=== PATIENT | female | born 1965 | race Caucasian/White ===

== ENCOUNTER 2017-12-14 10:05 | Inpatient (IN) | payer MEDICARE ==
[~2017-12-14] VITALS: Ht 162.6 cm; Wt 71.5 kg
[2017-12-14] MEDS ORDERED: QUET25TA PO (10:14)
[2017-12-14] MEDS ORDERED: PRAZ1 PO (10:14)
[2017-12-14] MEDS ORDERED: OMEP10 PO (10:14)
[2017-12-14] MEDS ORDERED: DICY20 PO (10:14)
[2017-12-14] MEDS ORDERED: ATOR10TA84 PO (10:14)
[2017-12-14] MEDS ORDERED: BUSP10TA23 PO (10:14)
[2017-12-14] MEDS ORDERED: VENL-53 PO (10:14)
[2017-12-14 10:38] LABS: BASOPHILS % (AUTO) 0.6 % (0.0-2.0); EOSINOPHILS % (AUTO) 3.5 % (1.0-6.0); HEMATOCRIT 36.3 % (36-46); HEMOGLOBIN 12.4 g/dL (12.0-16.0); LYMPHOCYTES # (AUTO) 1.3 K/uL (1.0-4.8); LYMPHOCYTES % (AUTO) 26.7 % (22.0-44.0); MEAN CORPUSCULAR HEMOGLOBIN 30.8 pg (26.0-34.0); MEAN CORPUSCULAR HGB CONC 34.2 G/dL (31.0-37.0); MEAN CORPUSCULAR VOLUME 90 fL (80-100); MONOCYTES # (AUTO) 0.5 K/uL (0.1-1.0); MONOCYTES % (AUTO) 9.2 % (2.0-9.0); PLATELET COUNT (AUTO) 280 K/uL (150-450); RED BLOOD CELL COUNT(AUTO) 4.04 MIL/uL (4.00-5.20); RED CELL DISTRIBUTION WIDTH 13.2 % (11.5-14.5)
[2017-12-14 10:45] LABS: AMPHET/METH SCREEN,URINE NEGATIVE (NEGATIVE); BARBITURATE SCREEN, URINE NEGATIVE (NEGATIVE); BENZODIAZEPINES SCREEN,URINE NEGATIVE (NEGATIVE); CANNABINOID SCREEN,URINE POSITIVE (NEGATIVE); COCAINE SCREEN,URINE NEGATIVE (NEGATIVE); METHADONE SCREEN, URINE NEGATIVE (NEGATIVE); OPIATE SCREEN,URINE NEGATIVE (NEGATIVE)
[2017-12-14 10:47] LABS: ANION GAP 10 mmol/L (8-16); CALCIUM, TOTAL 9.2 mg/dL (8.8-10.5); CARBON DIOXIDE 24 mmol/L (22-29); CHLORIDE 104 mmol/L (98-107); GLOMERULAR FILTR. RATE CALC > 60 mL/min (>60); GLUCOSE,RANDOM 111 mg/dL (70-110); POTASSIUM 3.8 mmol/L (3.5-5.1); SODIUM SERUM 138 mmol/L (136-145); UREA NITROGEN, BLOOD 3 mg/dL (7-18)
[2017-12-14 10:51] LABS: PHENCYCLIDINE SCREEN,URINE NEGATIVE (NEGATIVE)
[2017-12-14 10:52] LABS: ALANINE AMINOTRANSFERASE 16 U/L (12-78); ALBUMIN 3.8 g/dL (3.4-5.0); ALKALINE PHOSPHATASE 121 U/L (46-116); ASPARTATE AMINOTRANSFERASE 19 U/L (15-37); BILIRUBIN,TOTAL 0.4 mg/dL (0.1-1.0); TOTAL PROTEIN, SERUM 7.1 g/dL (6.4-8.2)
[2017-12-14] MEDS ORDERED: LORazepam 2 MG TABLET PO ONE (11:30)
[2017-12-14] MEDS ORDERED: HALOPERIDOL 5 MG TABLET PO ONE (11:30)
[2017-12-14] MEDS ORDERED: DiphenhydrAMINE HCL 25 MG CAPSULE PO ONE (11:30)
[2017-12-14 13:48] LABS: APPEARANCE,URINE CLOUDY (CLEAR); BILIRUBIN,URINE NEGATIVE (NEGATIVE); GLUCOSE, URINE (UA) NEGATIVE (NEGATIVE); KETONES,URINE NEGATIVE (NEGATIVE); LEUKOCYTE ESTERASE ,URINE SMALL (NEGATIVE); NITRATE,URINE NEGATIVE (NEGATIVE); OCCULT BLOOD,URINE TRACE (NEGATIVE); PH,URINE 5.5 (5.0-8.0); PROTEIN,URINE NEGATIVE (NEGATIVE); UROBILINOGEN,URINE 0.2 mg/dL (<=1.0)
[2017-12-14 14:05] LABS: BACTERIA,URINE None Seen /HPF (None Seen); RBC,URINE 0-2 /HPF (0-2)
[2017-12-14 14:47] VITALS: BP 121/82
[2017-12-14] MEDS ORDERED: MAGNESIUM HYDROXIDE SUSPENSION 30 ML UDCUP PO PRN (19:45)
[2017-12-14] MEDS ORDERED: PETROLATUM,WHITE 71 GM JELLY TP PRN (19:45)
[2017-12-14] MEDS ORDERED: MAG HYDROX/AL HYDROX/SIMETH ES 30 ML SUSPENSION UDCUP PO PRN (19:45)
[2017-12-14] MEDS ORDERED: BACITRACIN 28.4 GM OINTMENT TP PRN (19:45)
[2017-12-14] MEDS ORDERED: ONDANSETRON HCL 4 MG TABLET PO PRN (19:45)
[2017-12-14] MEDS ORDERED: LOPERAMIDE HCL 2 MG CAPSULE PO PRN (19:45)
[2017-12-14] MEDS ORDERED: CloNIDine HCL 0.1 MG TABLET PO PRN (19:45)
[2017-12-14] MEDS ORDERED: ALBUTEROL SULFATE HFA 90 MCG/PUFF 8 GM INHALER IH PRN (19:45)
[2017-12-14] MEDS ORDERED: BENZOCAINE/MENTHOL LOZENGE [8 LOZENGES/PACKET] MM PRN (20:00)
[2017-12-14 22:11] VITALS: BP 123/75
[2017-12-15 05:14] VITALS: BP 115/58
[2017-12-15] MEDS: LORazepam 2 MG TABLET PO PRN (05:18)
[2017-12-15 06:37] LABS: HEMOGLOBIN A1C 4.9 % (4.5-6.2)
[2017-12-15 06:47] LABS: CHOL/HDL RATIO 1.9 (3.9-5.7); THYROID STIMULATING HORMONE 0.63 uIU/mL (0.36-3.74)
[2017-12-15] MEDS: ATORVASTATIN CALCIUM 10 MG TABLET PO SCH (08:06)
[2017-12-15] MEDS: OMEPRAZOLE 20 MG CAPSULE PO SCH (08:06)
[2017-12-15] MEDS: DICYCLOMINE HCL 20 MG TABLET PO SCH (08:06)
[2017-12-15 08:08] VITALS: BP 102/59
[2017-12-15] MEDS: NICOTINE 14 MG/24 HOUR PATCH TD SCH (08:10)
[2017-12-15] MEDS ORDERED: PRAZOSIN HCL 1 MG CAPSULE PO SCH ×2 (09:45→21:00)
[2017-12-15] MEDS ORDERED: QUEtiapine FUMARATE 300 MG TABLET PO SCH ×2 (09:45→21:00)
[2017-12-15] MEDS: VENLAFAXINE HCL 37.5 MG TABLET PO SCH ×2 (13:16→16:12)
[2017-12-15] MEDS: BusPIRone HCL 10 MG TABLET PO SCH ×2 (13:16→16:12)
[2017-12-15 17:02] VITALS: BP 115/78
[2017-12-15] MEDS: NITROFURANTOIN/NITROFURAN MAC 100 MG CAPSULE [MACROBID] PO SCH (17:19)
[2017-12-15] MEDS: PRAZOSIN HCL 1 MG CAPSULE PO SCH (20:12)
[2017-12-15] MEDS: ZOLPIDEM TARTRATE 10 MG TABLET PO PRN (21:08)
[2017-12-16 04:37] VITALS: BP 148/89
[2017-12-16] MEDS: ACETAMINOPHEN 325 MG TABLET PO PRN (04:37)
[2017-12-16 08:05] VITALS: BP 124/92
[2017-12-16] MEDS: DICYCLOMINE HCL 20 MG TABLET PO SCH ×4 (08:21→21:00)
[2017-12-16] MEDS: NITROFURANTOIN/NITROFURAN MAC 100 MG CAPSULE [MACROBID] PO SCH ×2 (08:21→16:15)
[2017-12-16] MEDS: ATORVASTATIN CALCIUM 10 MG TABLET PO SCH (08:21)
[2017-12-16] MEDS: VENLAFAXINE HCL 37.5 MG TABLET PO SCH ×2 (08:21→16:15)
[2017-12-16] MEDS: BusPIRone HCL 10 MG TABLET PO SCH ×2 (08:21→16:16)
[2017-12-16] MEDS: OMEPRAZOLE 20 MG CAPSULE PO SCH (08:21)
[2017-12-16] MEDS: NICOTINE 14 MG/24 HOUR PATCH TD SCH (08:25)
[2017-12-16] MEDS: IBUPROFEN 600 MG TABLET PO PRN (10:09)
[2017-12-16 11:15] VITALS: BP 113/76
[2017-12-16 16:48] VITALS: BP 114/87
[2017-12-16] MEDS: PRAZOSIN HCL 1 MG CAPSULE PO SCH (21:00)
[2017-12-17 03:15] VITALS: BP 129/84
[2017-12-17] MEDS: LORazepam 2 MG TABLET PO PRN ×3 (03:17→22:03)
[2017-12-17 08:15] VITALS: BP 116/75
[2017-12-17] MEDS: OMEPRAZOLE 20 MG CAPSULE PO SCH (08:21)
[2017-12-17] MEDS: NITROFURANTOIN/NITROFURAN MAC 100 MG CAPSULE [MACROBID] PO SCH ×2 (08:21→16:04)
[2017-12-17] MEDS: DICYCLOMINE HCL 20 MG TABLET PO SCH ×4 (08:21→20:03)
[2017-12-17] MEDS: BusPIRone HCL 10 MG TABLET PO SCH ×2 (08:22→16:04)
[2017-12-17] MEDS: VENLAFAXINE HCL 37.5 MG TABLET PO SCH ×2 (08:22→16:04)
[2017-12-17] MEDS: ATORVASTATIN CALCIUM 10 MG TABLET PO SCH (08:22)
[2017-12-17] MEDS: NICOTINE 14 MG/24 HOUR PATCH TD SCH (08:23)
[2017-12-17] MEDS: IBUPROFEN 600 MG TABLET PO PRN ×2 (11:14→17:34)
[2017-12-17 11:17] VITALS: BP 118/79
[2017-12-17 12:14] VITALS: BP 127/86
[2017-12-17 17:34] VITALS: BP 137/97
[2017-12-17 18:34] VITALS: BP 128/87
[2017-12-17] MEDS: ZOLPIDEM TARTRATE 10 MG TABLET PO PRN (20:03)
[2017-12-17] MEDS: PRAZOSIN HCL 2 MG CAPSULE PO SCH (20:03)
[2017-12-18 04:05] VITALS: BP 127/97
[2017-12-18] MEDS: HALOPERIDOL 5 MG TABLET PO PRN ×2 (04:08→20:30)
[2017-12-18 08:49] VITALS: BP 156/93
[2017-12-18] MEDS: BusPIRone HCL 10 MG TABLET PO SCH ×2 (08:50→16:16)
[2017-12-18] MEDS: NITROFURANTOIN/NITROFURAN MAC 100 MG CAPSULE [MACROBID] PO SCH ×2 (08:50→16:17)
[2017-12-18] MEDS: DICYCLOMINE HCL 20 MG TABLET PO SCH ×4 (08:50→20:09)
[2017-12-18] MEDS: OMEPRAZOLE 20 MG CAPSULE PO SCH (08:50)
[2017-12-18] MEDS: VENLAFAXINE HCL 37.5 MG TABLET PO SCH (08:51)
[2017-12-18] MEDS: ATORVASTATIN CALCIUM 10 MG TABLET PO SCH (08:51)
[2017-12-18] MEDS: NICOTINE 14 MG/24 HOUR PATCH TD SCH (08:51)
[2017-12-18] MEDS: LORazepam 2 MG TABLET PO PRN ×2 (08:54→16:59)
[2017-12-18] MEDS: VENLAFAXINE HCL 75 MG TABLET PO SCH (16:17)
[2017-12-18 17:20] VITALS: BP 117/84
[2017-12-18] MEDS: PRAZOSIN HCL 2 MG CAPSULE PO SCH (20:09)
[2017-12-18] MEDS: ZOLPIDEM TARTRATE 10 MG TABLET PO PRN (20:30)
[2017-12-19 01:50] VITALS: BP 102/77
[2017-12-19] MEDS: LORazepam 2 MG TABLET PO PRN ×4 (01:50→15:27)
[2017-12-19 06:20] VITALS: BP 116/76
[2017-12-19] MEDS: IBUPROFEN 600 MG TABLET PO PRN (06:22)
[2017-12-19 08:15] VITALS: BP 118/83
[2017-12-19] MEDS: DICYCLOMINE HCL 20 MG TABLET PO SCH ×4 (08:39→21:14)
[2017-12-19] MEDS: ATORVASTATIN CALCIUM 10 MG TABLET PO SCH (08:40)
[2017-12-19] MEDS: BusPIRone HCL 10 MG TABLET PO SCH ×2 (08:40→16:44)
[2017-12-19] MEDS: VENLAFAXINE HCL 75 MG TABLET PO SCH ×2 (08:40→16:44)
[2017-12-19] MEDS: OMEPRAZOLE 20 MG CAPSULE PO SCH (08:40)
[2017-12-19] MEDS: NITROFURANTOIN/NITROFURAN MAC 100 MG CAPSULE [MACROBID] PO SCH ×2 (08:40→16:44)
[2017-12-19] MEDS: NICOTINE 14 MG/24 HOUR PATCH TD SCH (08:42)
[2017-12-19] MEDS: ACETAMINOPHEN 325 MG TABLET PO PRN (10:43)
[2017-12-19] MEDS: HALOPERIDOL 5 MG TABLET PO PRN (14:25)
[2017-12-19 16:26] VITALS: BP 110/68
[2017-12-19] MEDS: PRAZOSIN HCL 2 MG CAPSULE PO SCH (21:14)
[2017-12-20 01:55] VITALS: BP 143/91
[2017-12-20] MEDS: ZOLPIDEM TARTRATE 10 MG TABLET PO PRN (01:58)
[2017-12-20] MEDS: DICYCLOMINE HCL 20 MG TABLET PO SCH ×2 (08:12→13:06)
[2017-12-20] MEDS: ATORVASTATIN CALCIUM 10 MG TABLET PO SCH (08:13)
[2017-12-20] MEDS: OMEPRAZOLE 20 MG CAPSULE PO SCH (08:13)
[2017-12-20] MEDS: NITROFURANTOIN/NITROFURAN MAC 100 MG CAPSULE [MACROBID] PO SCH (08:13)
[2017-12-20] MEDS: BusPIRone HCL 10 MG TABLET PO SCH (08:13)
[2017-12-20] MEDS: LORazepam 2 MG TABLET PO PRN (08:14)
[2017-12-20] MEDS: NICOTINE 14 MG/24 HOUR PATCH TD SCH (08:14)
[2017-12-20] MEDS ORDERED: VENLAFAXINE HCL 75 MG TABLET PO SCH (09:00)
[2017-12-20 09:05] VITALS: BP 114/67
[2017-12-20] MEDS ORDERED: VENL-193 PO (10:10)
[2017-12-20] MEDS ORDERED: MACR100 PO (10:11)
== END 2017-12-20 14:33 | disposition home or self-care (01) | DRG 885 ==
LOC: EMS 10:06 → 3EX 13:14
PROVIDERS: ATTEND Psychiatry & Neurology Child & Adolescent Psychiatry
DX: F33.2 Major depressive disorder, recurrent severe without psychotic features (principal); R45.851 Suicidal ideations; N39.0 Urinary tract infection, site not specified; E78.5 Hyperlipidemia, unspecified; F12.90 Cannabis use, unspecified, uncomplicated; F43.10 Post-traumatic stress disorder, unspecified; G47.00 Insomnia, unspecified; K21.9 Gastro-esophageal reflux disease without esophagitis; K58.9 Irritable bowel syndrome, unspecified; M54.5 Low back pain; R73.9 Hyperglycemia, unspecified; Z71.51 Drug abuse counseling and surveillance of drug abuser; Z59.9 Problem related to housing and economic circumstances, unspecified; Z91.410 Personal history of adult physical and sexual abuse; Z59.0 Homelessness; Z88.1 Allergy status to other antibiotic agents; Z88.2 Allergy status to sulfonamides; Z79.899 Other long term (current) drug therapy; Z98.891 History of uterine scar from previous surgery
CPT/HCPCS: 82306; 83036; 84443; 99285; G0480

== ENCOUNTER 2018-01-12 13:04 | Inpatient (IN) | payer MEDICARE ==
[~2018-01-12] VITALS: Ht 162.6 cm; Wt 71.9 kg
[~2018-01-12 13:04] MED LIST: ATOR10TA84 PO; BUSP10TA23 PO; DICY20 PO; MACR100 PO; OMEP10 PO; PRAZ1 PO; VENL-193 PO
[2018-01-12 14:22] LABS: APPEARANCE,URINE CLEAR (CLEAR); BILIRUBIN,URINE NEGATIVE (NEGATIVE); GLUCOSE, URINE (UA) NEGATIVE (NEGATIVE); KETONES,URINE NEGATIVE (NEGATIVE); LEUKOCYTE ESTERASE ,URINE SMALL (NEGATIVE); NITRATE,URINE NEGATIVE (NEGATIVE); OCCULT BLOOD,URINE TRACE (NEGATIVE); PROTEIN,URINE NEGATIVE (NEGATIVE); UROBILINOGEN,URINE 0.2 mg/dL (<=1.0)
[2018-01-12 14:28] LABS: AMPHET/METH SCREEN,URINE NEGATIVE (NEGATIVE); BARBITURATE SCREEN, URINE NEGATIVE (NEGATIVE); BENZODIAZEPINES SCREEN,URINE NEGATIVE (NEGATIVE); CANNABINOID SCREEN,URINE POSITIVE (NEGATIVE); COCAINE SCREEN,URINE NEGATIVE (NEGATIVE); METHADONE SCREEN, URINE NEGATIVE (NEGATIVE); OPIATE SCREEN,URINE NEGATIVE (NEGATIVE); PHENCYCLIDINE SCREEN,URINE NEGATIVE (NEGATIVE)
[2018-01-12 14:41] LABS: BACTERIA,URINE None Seen /HPF (None Seen); RBC,URINE 0-2 /HPF (0-2); SQUAMOUS EPITHELIAL CELL,UR Moderate /LPF (None Seen)
[2018-01-12 15:14] LABS: BASOPHILS % (AUTO) 0.8 % (0.0-2.0); EOSINOPHILS % (AUTO) 3.9 % (1.0-6.0); HEMATOCRIT 39.5 % (36-46); HEMOGLOBIN 13.3 g/dL (12.0-16.0); LYMPHOCYTES # (AUTO) 1.7 K/uL (1.0-4.8); LYMPHOCYTES % (AUTO) 31.4 % (22.0-44.0); MEAN CORPUSCULAR HEMOGLOBIN 30.6 pg (26.0-34.0); MEAN CORPUSCULAR HGB CONC 33.8 G/dL (31.0-37.0); MEAN CORPUSCULAR VOLUME 90 fL (80-100); MONOCYTES # (AUTO) 0.5 K/uL (0.1-1.0); MONOCYTES % (AUTO) 8.6 % (2.0-9.0); NEUTROPHILS % (AUTO) 55.3 % (40.0-70.0); PLATELET COUNT (AUTO) 245 K/uL (150-450); RED BLOOD CELL COUNT(AUTO) 4.36 MIL/uL (4.00-5.20); RED CELL DISTRIBUTION WIDTH 13.2 % (11.5-14.5)
[2018-01-12 15:23] LABS: ANION GAP 5 mmol/L (8-16); CALCIUM, TOTAL 9.1 mg/dL (8.8-10.5); CARBON DIOXIDE 29 mmol/L (22-29); CHLORIDE 107 mmol/L (98-107); CREATININE 0.82 mg/dL (0.60-1.30); GLOMERULAR FILTR. RATE CALC > 60 mL/min (>60); GLUCOSE,RANDOM 98 mg/dL (70-110); POTASSIUM 3.8 mmol/L (3.5-5.1); SODIUM SERUM 141 mmol/L (136-145); UREA NITROGEN, BLOOD 3 mg/dL (7-18)
[2018-01-12 15:28] LABS: ALANINE AMINOTRANSFERASE 26 U/L (12-78); ALBUMIN 3.8 g/dL (3.4-5.0); ALKALINE PHOSPHATASE 136 U/L (46-116); ASPARTATE AMINOTRANSFERASE 18 U/L (15-37); BILIRUBIN,TOTAL 0.3 mg/dL (0.1-1.0); TOTAL PROTEIN, SERUM 7.3 g/dL (6.4-8.2)
[2018-01-12] MEDS ORDERED: LORazepam 1 MG TABLET PO ONE (18:00)
[2018-01-12 21:18] VITALS: BP 138/75
[2018-01-12] MEDS ORDERED: BENZOCAINE/MENTHOL LOZENGE MM PRN (22:00)
[2018-01-12] MEDS ORDERED: CloNIDine HCL 0.1 MG TABLET PO PRN (22:00)
[2018-01-12] MEDS ORDERED: ONDANSETRON HCL 4 MG TABLET PO PRN (22:00)
[2018-01-12] MEDS ORDERED: ACETAMINOPHEN 325 MG TABLET PO PRN (22:00)
[2018-01-12] MEDS ORDERED: MAGNESIUM HYDROXIDE SUSPENSION 30 ML UDCUP PO PRN (22:00)
[2018-01-12] MEDS ORDERED: PETROLATUM,WHITE 71 GM JELLY TP PRN (22:00)
[2018-01-12] MEDS ORDERED: MAG HYDROX/AL HYDROX/SIMETH ES 30 ML SUSPENSION UDCUP PO PRN (22:00)
[2018-01-12] MEDS ORDERED: LOPERAMIDE HCL 2 MG CAPSULE PO PRN (22:00)
[2018-01-12] MEDS ORDERED: ALBUTEROL SULFATE HFA 90 MCG/PUFF 8 GM INHALER IH PRN (22:00)
[2018-01-12] MEDS ORDERED: BACITRACIN 28.4 GM OINTMENT TP PRN (22:00)
[2018-01-13 00:30] VITALS: BP 118/90
[2018-01-13] MEDS: LORazepam 2 MG TABLET PO PRN ×2 (00:39→09:25)
[2018-01-13] MEDS: ZOLPIDEM TARTRATE 10 MG TABLET PO PRN (00:39)
[2018-01-13 06:02] LABS: BASOPHILS % (AUTO) 0.7 % (0.0-2.0); EOSINOPHILS % (AUTO) 7.5 % (1.0-6.0); HEMATOCRIT 37.8 % (36-46); LYMPHOCYTES # (AUTO) 1.6 K/uL (1.0-4.8); LYMPHOCYTES % (AUTO) 34.6 % (22.0-44.0); MEAN CORPUSCULAR HEMOGLOBIN 30.7 pg (26.0-34.0); MEAN CORPUSCULAR HGB CONC 34.5 G/dL (31.0-37.0); MEAN CORPUSCULAR VOLUME 89 fL (80-100); MONOCYTES # (AUTO) 0.5 K/uL (0.1-1.0); MONOCYTES % (AUTO) 11.8 % (2.0-9.0); NEUTROPHILS # (AUTO) 2.1 K/uL (1.8-7.7); NEUTROPHILS % (AUTO) 45.4 % (40.0-70.0); PLATELET COUNT (AUTO) 241 K/uL (150-450); RED BLOOD CELL COUNT(AUTO) 4.24 MIL/uL (4.00-5.20); RED CELL DISTRIBUTION WIDTH 13.5 % (11.5-14.5)
[2018-01-13 06:30] LABS: ANION GAP 7 mmol/L (8-16); CALCIUM, TOTAL 9.1 mg/dL (8.8-10.5); CARBON DIOXIDE 28 mmol/L (22-29); CHLORIDE 105 mmol/L (98-107); CHOL/HDL RATIO 2.4 (3.9-5.7); CHOLESTEROL 141 mg/dL (131-200); CREATININE 0.69 mg/dL (0.60-1.30); GLOMERULAR FILTR. RATE CALC > 60 mL/min (>60); GLUCOSE,RANDOM 88 mg/dL (70-110); HDL CHOLESTEROL 60 mg/dL (40-60); LDL CHOL (CALC.) 71 mg/dL (0-130); POTASSIUM 3.9 mmol/L (3.5-5.1); SODIUM SERUM 140 mmol/L (136-145); THYROID STIMULATING HORMONE 1.42 uIU/mL (0.36-3.74); TRIGLYCERIDES 50 mg/dL (15-150); UREA NITROGEN, BLOOD 7 mg/dL (7-18)
[2018-01-13] MEDS: OMEPRAZOLE 20 MG CAPSULE PO SCH (08:33)
[2018-01-13] MEDS: DOCUSATE SODIUM 100 MG CAPSULE PO SCH (08:33)
[2018-01-13] MEDS: NICOTINE 14 MG/24 HOUR PATCH TD SCH (08:38)
[2018-01-13 09:15] VITALS: BP 128/90
[2018-01-13] MEDS: BusPIRone HCL 10 MG TABLET PO SCH ×2 (09:30→16:48)
[2018-01-13] MEDS: VENLAFAXINE HCL 37.5 MG ER CAPSULE PO SCH (10:31)
[2018-01-13] MEDS: VENLAFAXINE HCL 150 MG ER CAPSULE PO SCH (10:31)
[2018-01-13 16:24] VITALS: BP 131/73
[2018-01-13] MEDS: ATORVASTATIN CALCIUM 20 MG TABLET PO SCH (20:43)
[2018-01-13] MEDS: QUEtiapine FUMARATE 300 MG TABLET PO SCH (20:44)
[2018-01-13] MEDS: PRAZOSIN HCL 2 MG CAPSULE PO SCH (20:44)
[2018-01-14] MEDS: DOCUSATE SODIUM 100 MG CAPSULE PO SCH (08:21)
[2018-01-14] MEDS: OMEPRAZOLE 20 MG CAPSULE PO SCH (08:21)
[2018-01-14] MEDS: BusPIRone HCL 10 MG TABLET PO SCH ×2 (08:21→16:25)
[2018-01-14] MEDS: VENLAFAXINE HCL 150 MG ER CAPSULE PO SCH (08:22)
[2018-01-14] MEDS: VENLAFAXINE HCL 37.5 MG ER CAPSULE PO SCH (08:23)
[2018-01-14 08:30] VITALS: BP 111/69
[2018-01-14] MEDS: LORazepam 2 MG TABLET PO PRN (08:32)
[2018-01-14] MEDS: IBUPROFEN 600 MG TABLET PO PRN (08:32)
[2018-01-14] MEDS: NICOTINE 14 MG/24 HOUR PATCH TD SCH (08:34)
[2018-01-14 09:44] VITALS: BP 105/55
[2018-01-14] MEDS ORDERED: OMEP20 PO (12:16)
[2018-01-14] MEDS ORDERED: PRAZ2 PO (12:16)
[2018-01-14 16:22] VITALS: BP 123/73
[2018-01-14] MEDS: ATORVASTATIN CALCIUM 20 MG TABLET PO SCH (20:00)
[2018-01-14] MEDS: ZOLPIDEM TARTRATE 10 MG TABLET PO PRN (20:00)
[2018-01-14] MEDS: QUEtiapine FUMARATE 300 MG TABLET PO SCH (20:00)
[2018-01-14] MEDS: PRAZOSIN HCL 2 MG CAPSULE PO SCH (20:00)
[2018-01-15] MEDS: DOCUSATE SODIUM 100 MG CAPSULE PO SCH (08:08)
[2018-01-15] MEDS: BusPIRone HCL 10 MG TABLET PO SCH ×2 (08:08→16:14)
[2018-01-15] MEDS: DICYCLOMINE HCL 20 MG TABLET PO SCH (08:08)
[2018-01-15] MEDS: VENLAFAXINE HCL 37.5 MG ER CAPSULE PO SCH (08:08)
[2018-01-15] MEDS: OMEPRAZOLE 20 MG CAPSULE PO SCH (08:08)
[2018-01-15] MEDS: VENLAFAXINE HCL 150 MG ER CAPSULE PO SCH (08:09)
[2018-01-15] MEDS: NICOTINE 14 MG/24 HOUR PATCH TD SCH (08:09)
[2018-01-15 08:52] VITALS: BP 119/90
[2018-01-15] MEDS: LORazepam 2 MG TABLET PO PRN ×2 (08:52→16:14)
[2018-01-15] MEDS: IBUPROFEN 600 MG TABLET PO PRN (08:52)
[2018-01-15 17:00] VITALS: BP 128/70
[2018-01-15] MEDS: QUEtiapine FUMARATE 300 MG TABLET PO SCH (20:01)
[2018-01-15] MEDS: ATORVASTATIN CALCIUM 20 MG TABLET PO SCH (20:01)
[2018-01-15] MEDS: PRAZOSIN HCL 2 MG CAPSULE PO SCH (20:01)
[2018-01-15] MEDS: ZOLPIDEM TARTRATE 10 MG TABLET PO PRN (20:06)
[2018-01-16] MEDS: IBUPROFEN 600 MG TABLET PO PRN (02:34)
[2018-01-16 02:38] VITALS: BP 115/82
[2018-01-16] MEDS: BusPIRone HCL 10 MG TABLET PO SCH ×2 (08:06→16:31)
[2018-01-16] MEDS: DICYCLOMINE HCL 20 MG TABLET PO SCH (08:06)
[2018-01-16] MEDS: LORazepam 2 MG TABLET PO PRN (08:06)
[2018-01-16] MEDS: VENLAFAXINE HCL 37.5 MG ER CAPSULE PO SCH (08:06)
[2018-01-16] MEDS: DOCUSATE SODIUM 100 MG CAPSULE PO SCH (08:07)
[2018-01-16] MEDS: NICOTINE 14 MG/24 HOUR PATCH TD SCH (08:07)
[2018-01-16] MEDS: VENLAFAXINE HCL 150 MG ER CAPSULE PO SCH (08:07)
[2018-01-16] MEDS: OMEPRAZOLE 20 MG CAPSULE PO SCH (08:07)
[2018-01-16 08:30] VITALS: BP 120/84
[2018-01-16 08:34] VITALS: BP 120/84
[2018-01-16 16:17] VITALS: BP 121/86
[2018-01-16] MEDS: ZOLPIDEM TARTRATE 10 MG TABLET PO PRN (20:13)
[2018-01-16] MEDS: QUEtiapine FUMARATE 300 MG TABLET PO SCH (20:13)
[2018-01-16] MEDS: PRAZOSIN HCL 2 MG CAPSULE PO SCH (20:13)
[2018-01-16] MEDS: ATORVASTATIN CALCIUM 20 MG TABLET PO SCH (20:13)
[2018-01-17] MEDS: VENLAFAXINE HCL 37.5 MG ER CAPSULE PO SCH (07:59)
[2018-01-17] MEDS: BusPIRone HCL 10 MG TABLET PO SCH ×2 (07:59→16:37)
[2018-01-17] MEDS: DOCUSATE SODIUM 100 MG CAPSULE PO SCH (07:59)
[2018-01-17] MEDS: DICYCLOMINE HCL 20 MG TABLET PO SCH (07:59)
[2018-01-17] MEDS: VENLAFAXINE HCL 150 MG ER CAPSULE PO SCH (07:59)
[2018-01-17] MEDS: OMEPRAZOLE 20 MG CAPSULE PO SCH (07:59)
[2018-01-17] MEDS: NICOTINE 14 MG/24 HOUR PATCH TD SCH (08:04)
[2018-01-17] MEDS: LORazepam 2 MG TABLET PO PRN ×2 (08:14→15:21)
[2018-01-17 08:38] VITALS: BP 127/82
[2018-01-17] MEDS: IBUPROFEN 600 MG TABLET PO PRN (15:21)
[2018-01-17 15:23] VITALS: BP 113/64
[2018-01-17 16:13] VITALS: BP 117/71
[2018-01-17] MEDS: ATORVASTATIN CALCIUM 20 MG TABLET PO SCH (20:24)
[2018-01-17] MEDS: PRAZOSIN HCL 2 MG CAPSULE PO SCH (20:24)
[2018-01-17] MEDS: QUEtiapine FUMARATE 300 MG TABLET PO SCH (20:24)
[2018-01-17] MEDS: ZOLPIDEM TARTRATE 10 MG TABLET PO PRN (20:28)
[2018-01-18] MEDS: OMEPRAZOLE 20 MG CAPSULE PO SCH (07:59)
[2018-01-18] MEDS: LORazepam 2 MG TABLET PO PRN ×2 (07:59→14:01)
[2018-01-18] MEDS: DOCUSATE SODIUM 100 MG CAPSULE PO SCH (07:59)
[2018-01-18] MEDS: IBUPROFEN 600 MG TABLET PO PRN (07:59)
[2018-01-18] MEDS: VENLAFAXINE HCL 150 MG ER CAPSULE PO SCH (07:59)
[2018-01-18] MEDS: BusPIRone HCL 10 MG TABLET PO SCH ×2 (07:59→16:21)
[2018-01-18] MEDS: DICYCLOMINE HCL 20 MG TABLET PO SCH (08:00)
[2018-01-18] MEDS: VENLAFAXINE HCL 37.5 MG ER CAPSULE PO SCH (08:00)
[2018-01-18 08:01] VITALS: BP 137/94
[2018-01-18] MEDS: NICOTINE 14 MG/24 HOUR PATCH TD SCH (08:03)
[2018-01-18 09:10] VITALS: BP 127/88
[2018-01-18] MEDS: HALOPERIDOL 5 MG TABLET PO PRN (10:58)
[2018-01-18] MEDS: ATORVASTATIN CALCIUM 20 MG TABLET PO SCH (20:37)
[2018-01-18] MEDS: QUEtiapine FUMARATE 300 MG TABLET PO SCH (20:37)
[2018-01-18] MEDS: PRAZOSIN HCL 2 MG CAPSULE PO SCH (20:37)
[2018-01-18 20:42] VITALS: BP 119/78
[2018-01-19] MEDS: LORazepam 2 MG TABLET PO PRN ×4 (04:00→16:39)
[2018-01-19 04:32] VITALS: BP 132/78
[2018-01-19] MEDS: DICYCLOMINE HCL 20 MG TABLET PO SCH (08:12)
[2018-01-19] MEDS: DOCUSATE SODIUM 100 MG CAPSULE PO SCH (08:12)
[2018-01-19] MEDS: BusPIRone HCL 10 MG TABLET PO SCH ×2 (08:12→16:39)
[2018-01-19] MEDS: OMEPRAZOLE 20 MG CAPSULE PO SCH (08:13)
[2018-01-19] MEDS: VENLAFAXINE HCL 75 MG ER CAPSULE PO SCH (08:13)
[2018-01-19] MEDS: NICOTINE 14 MG/24 HOUR PATCH TD SCH (08:22)
[2018-01-19 08:51] VITALS: BP 135/67
[2018-01-19 16:34] VITALS: BP 109/75
[2018-01-19] MEDS: ATORVASTATIN CALCIUM 20 MG TABLET PO SCH (20:03)
[2018-01-19] MEDS: PRAZOSIN HCL 2 MG CAPSULE PO SCH (20:03)
[2018-01-19] MEDS: QUEtiapine FUMARATE 300 MG TABLET PO SCH (20:03)
[2018-01-19 20:05] VITALS: BP 125/58
[2018-01-19] MEDS: IBUPROFEN 600 MG TABLET PO PRN (20:05)
[2018-01-19] MEDS: ZOLPIDEM TARTRATE 10 MG TABLET PO PRN (20:05)
[2018-01-19 21:05] VITALS: BP 89/57
[2018-01-20] MEDS: DOCUSATE SODIUM 100 MG CAPSULE PO SCH (08:16)
[2018-01-20] MEDS: BusPIRone HCL 10 MG TABLET PO SCH ×2 (08:16→16:12)
[2018-01-20] MEDS: OMEPRAZOLE 20 MG CAPSULE PO SCH (08:16)
[2018-01-20] MEDS: VENLAFAXINE HCL 75 MG ER CAPSULE PO SCH (08:16)
[2018-01-20] MEDS: DICYCLOMINE HCL 20 MG TABLET PO SCH (08:16)
[2018-01-20] MEDS: LORazepam 2 MG TABLET PO PRN ×3 (08:19→16:57)
[2018-01-20] MEDS: NICOTINE 14 MG/24 HOUR PATCH TD SCH (08:21)
[2018-01-20 09:09] VITALS: BP 101/65
[2018-01-20] MEDS: IBUPROFEN 600 MG TABLET PO PRN ×2 (12:46→20:09)
[2018-01-20 17:13] VITALS: BP 128/72
[2018-01-20] MEDS: PRAZOSIN HCL 2 MG CAPSULE PO SCH (20:06)
[2018-01-20] MEDS: ATORVASTATIN CALCIUM 20 MG TABLET PO SCH (20:06)
[2018-01-20] MEDS: QUEtiapine FUMARATE 300 MG TABLET PO SCH (20:06)
[2018-01-20] MEDS: ZOLPIDEM TARTRATE 10 MG TABLET PO PRN (20:08)
[2018-01-20 20:09] VITALS: BP 118/80
[2018-01-20 21:09] VITALS: BP 89/57
[2018-01-21] MEDS: LORazepam 2 MG TABLET PO PRN ×2 (08:03→14:03)
[2018-01-21 08:04] VITALS: BP 108/59
[2018-01-21] MEDS: VENLAFAXINE HCL 75 MG ER CAPSULE PO SCH (08:04)
[2018-01-21] MEDS: IBUPROFEN 600 MG TABLET PO PRN (08:04)
[2018-01-21] MEDS: BusPIRone HCL 10 MG TABLET PO SCH ×2 (08:05→16:00)
[2018-01-21] MEDS: NICOTINE 14 MG/24 HOUR PATCH TD SCH (08:05)
[2018-01-21] MEDS: DICYCLOMINE HCL 20 MG TABLET PO SCH (08:05)
[2018-01-21] MEDS: OMEPRAZOLE 20 MG CAPSULE PO SCH (08:05)
[2018-01-21] MEDS: DOCUSATE SODIUM 100 MG CAPSULE PO SCH (08:05)
[2018-01-21] MEDS: HALOPERIDOL 5 MG TABLET PO PRN (15:49)
[2018-01-21 16:20] VITALS: BP 119/65
[2018-01-21] MEDS: QUEtiapine FUMARATE 300 MG TABLET PO SCH (20:23)
[2018-01-21] MEDS: PRAZOSIN HCL 2 MG CAPSULE PO SCH (20:23)
[2018-01-21] MEDS: ATORVASTATIN CALCIUM 20 MG TABLET PO SCH (20:23)
[2018-01-21] MEDS: ZOLPIDEM TARTRATE 10 MG TABLET PO PRN (21:00)
[2018-01-22] MEDS: VENLAFAXINE HCL 75 MG ER CAPSULE PO SCH (08:18)
[2018-01-22] MEDS: DOCUSATE SODIUM 100 MG CAPSULE PO SCH (08:18)
[2018-01-22] MEDS: BusPIRone HCL 10 MG TABLET PO SCH ×2 (08:18→16:08)
[2018-01-22] MEDS: DICYCLOMINE HCL 20 MG TABLET PO SCH ×2 (08:18→20:25)
[2018-01-22] MEDS: LORazepam 2 MG TABLET PO PRN ×3 (08:23→16:45)
[2018-01-22] MEDS: OMEPRAZOLE 20 MG CAPSULE PO SCH (08:23)
[2018-01-22] MEDS: NICOTINE 14 MG/24 HOUR PATCH TD SCH (08:26)
[2018-01-22 09:49] VITALS: BP 94/66
[2018-01-22] MEDS: IBUPROFEN 600 MG TABLET PO PRN (12:29)
[2018-01-22] MEDS: HALOPERIDOL 5 MG TABLET PO PRN ×2 (15:30→20:24)
[2018-01-22 16:53] VITALS: BP 119/77
[2018-01-22] MEDS: PRAZOSIN HCL 2 MG CAPSULE PO SCH (20:24)
[2018-01-22] MEDS: ATORVASTATIN CALCIUM 20 MG TABLET PO SCH (20:24)
[2018-01-22] MEDS: QUEtiapine FUMARATE 300 MG TABLET PO SCH (20:24)
[2018-01-23] MEDS ORDERED: BUSP10TA23 PO (04:31)
[2018-01-23] MEDS ORDERED: VENL-67 PO (04:41)
[2018-01-23] MEDS ORDERED: QUET300T2 PO (04:43)
[2018-01-23] MEDS ORDERED: DSS100 PO (06:46)
[2018-01-23] MEDS ORDERED: DICY20 PO (06:47)
[2018-01-23] MEDS ORDERED: ATOR20TA86 PO (06:47)
[2018-01-23 07:25] VITALS: BP 121/67
[2018-01-23] MEDS: DICYCLOMINE HCL 20 MG TABLET PO SCH (07:52)
[2018-01-23] MEDS: BusPIRone HCL 10 MG TABLET PO SCH (07:53)
[2018-01-23] MEDS: OMEPRAZOLE 20 MG CAPSULE PO SCH (07:53)
[2018-01-23] MEDS: VENLAFAXINE HCL 75 MG ER CAPSULE PO SCH (07:53)
[2018-01-23] MEDS: DOCUSATE SODIUM 100 MG CAPSULE PO SCH (07:53)
[2018-01-23] MEDS: NICOTINE 14 MG/24 HOUR PATCH TD SCH (08:01)
== END 2018-01-23 08:45 | disposition home or self-care (01) | DRG 885 ==
LOC: EMS 13:05 → 3EX 19:18
PROVIDERS: ADMIT Psychiatry & Neurology Child & Adolescent Psychiatry; ATTEND Psychiatry & Neurology Child & Adolescent Psychiatry
DX: F33.2 Major depressive disorder, recurrent severe without psychotic features (principal); F20.9 Schizophrenia, unspecified; R45.851 Suicidal ideations; E55.9 Vitamin D deficiency, unspecified; E78.5 Hyperlipidemia, unspecified; F12.90 Cannabis use, unspecified, uncomplicated; F17.200 Nicotine dependence, unspecified, uncomplicated; F43.10 Post-traumatic stress disorder, unspecified; G47.00 Insomnia, unspecified; K21.9 Gastro-esophageal reflux disease without esophagitis; K58.9 Irritable bowel syndrome, unspecified; Z91.410 Personal history of adult physical and sexual abuse; Z91.5 Personal history of self-harm; Z88.1 Allergy status to other antibiotic agents; Z88.0 Allergy status to penicillin; Z88.2 Allergy status to sulfonamides; Z88.8 Allergy status to other drugs, medicaments and biological substances
CPT/HCPCS: 82306; 84443; 87081; 99285; G0480

== ENCOUNTER 2018-02-14 12:09 | Inpatient (IN) | payer MEDICARE ==
[~2018-02-14] VITALS: Ht 162.6 cm; Wt 74.8 kg
[~2018-02-14 12:09] MED LIST changes: -ATOR10TA84 PO; +ATOR20TA86 PO; +DSS100 PO; -MACR100 PO; -OMEP10 PO; +OMEP20 PO; -PRAZ1 PO; +PRAZ2 PO; +QUET300T2 PO; -VENL-193 PO; +VENL-67 PO
[2018-02-14 12:15] VITALS: BP 118/82
[2018-02-14] MEDS ORDERED: HALOPERIDOL 5 MG TABLET PO PRN (12:30)
[2018-02-14] MEDS ORDERED: PARO20TA24 PO (13:08)
[2018-02-14] MEDS: LORazepam 2 MG TABLET PO PRN (16:13)
[2018-02-14 16:28] VITALS: BP 127/82
[2018-02-14] MEDS: BusPIRone HCL 10 MG TABLET PO SCH (16:58)
[2018-02-14] MEDS: NICOTINE 14 MG/24 HOUR PATCH TD SCH (19:23)
[2018-02-14] MEDS: PARoxetine HCL 20 MG TABLET PO SCH (20:37)
[2018-02-14] MEDS: QUEtiapine FUMARATE 300 MG TABLET PO SCH (20:37)
[2018-02-15 01:44] VITALS: BP 113/71
[2018-02-15 08:31] VITALS: BP 125/72
[2018-02-15 08:31] LABS: BASOPHILS % (AUTO) 0.8 % (0.0-2.0); EOSINOPHILS % (AUTO) 5.2 % (1.0-6.0); HEMATOCRIT 38.7 % (36-46); HEMOGLOBIN 13.4 g/dL (12.0-16.0); LYMPHOCYTES # (AUTO) 1.8 K/uL (1.0-4.8); LYMPHOCYTES % (AUTO) 35.2 % (22.0-44.0); MEAN CORPUSCULAR HEMOGLOBIN 30.8 pg (26.0-34.0); MEAN CORPUSCULAR HGB CONC 34.7 G/dL (31.0-37.0); MEAN CORPUSCULAR VOLUME 89 fL (80-100); MONOCYTES # (AUTO) 0.7 K/uL (0.1-1.0); MONOCYTES % (AUTO) 13.4 % (2.0-9.0); NEUTROPHILS # (AUTO) 2.3 K/uL (1.8-7.7); NEUTROPHILS % (AUTO) 45.4 % (40.0-70.0); PLATELET COUNT (AUTO) 261 K/uL (150-450); RED BLOOD CELL COUNT(AUTO) 4.36 MIL/uL (4.00-5.20); RED CELL DISTRIBUTION WIDTH 13.3 % (11.5-14.5)
[2018-02-15 08:38] LABS: HEMOGLOBIN A1C 6.1 % (4.5-6.2)
[2018-02-15] MEDS: NICOTINE 14 MG/24 HOUR PATCH TD SCH (08:41)
[2018-02-15] MEDS: BusPIRone HCL 10 MG TABLET PO SCH ×2 (08:41→16:29)
[2018-02-15] MEDS: LORazepam 2 MG TABLET PO PRN ×2 (08:48→17:37)
[2018-02-15 09:09] LABS: ALANINE AMINOTRANSFERASE 26 U/L (12-78); ALBUMIN 3.7 g/dL (3.4-5.0); ALKALINE PHOSPHATASE 131 U/L (46-116); ANION GAP 8 mmol/L (8-16); ASPARTATE AMINOTRANSFERASE 16 U/L (15-37); BILIRUBIN,TOTAL 0.4 mg/dL (0.1-1.0); CALCIUM, TOTAL 8.8 mg/dL (8.8-10.5); CARBON DIOXIDE 27 mmol/L (22-29); CHLORIDE 106 mmol/L (98-107); CHOL/HDL RATIO 1.9 (3.9-5.7); CHOLESTEROL 131 mg/dL (131-200); CREATININE 0.68 mg/dL (0.60-1.30); FREE T4 (FREE THYROXINE) 0.72 ng/dL (0.76-1.46); GLOMERULAR FILTR. RATE CALC > 60 mL/min (>60); GLUCOSE,RANDOM 86 mg/dL (70-110); HDL CHOLESTEROL 69 mg/dL (40-60); LDL CHOL (CALC.) 53 mg/dL (0-130); POTASSIUM 4.4 mmol/L (3.5-5.1); SODIUM SERUM 141 mmol/L (136-145); THYROID STIMULATING HORMONE 1.06 uIU/mL (0.36-3.74); TOTAL PROTEIN, SERUM 6.8 g/dL (6.4-8.2); TRIGLYCERIDES 43 mg/dL (15-150); UREA NITROGEN, BLOOD 12 mg/dL (7-18)
[2018-02-15] MEDS ORDERED: DICYCLOMINE HCL 20 MG TABLET PO SCH (09:30)
[2018-02-15] MEDS ORDERED: OMEPRAZOLE 20 MG CAPSULE PO SCH (09:30)
[2018-02-15] MEDS ORDERED: BACITRACIN 28.4 GM OINTMENT TP PRN (09:45)
[2018-02-15] MEDS ORDERED: LOPERAMIDE HCL 2 MG CAPSULE PO PRN (09:45)
[2018-02-15] MEDS ORDERED: BENZOCAINE/MENTHOL LOZENGE MM PRN (09:45)
[2018-02-15] MEDS ORDERED: MAGNESIUM HYDROXIDE SUSPENSION 30 ML UDCUP PO PRN (09:45)
[2018-02-15] MEDS ORDERED: PETROLATUM,WHITE 71 GM JELLY TP PRN (09:45)
[2018-02-15] MEDS ORDERED: ONDANSETRON HCL 4 MG TABLET PO PRN (09:45)
[2018-02-15] MEDS ORDERED: MAG HYDROX/AL HYDROX/SIMETH ES 30 ML SUSPENSION UDCUP PO PRN (09:45)
[2018-02-15] MEDS ORDERED: ALBUTEROL SULFATE HFA 90 MCG/PUFF 8 GM INHALER IH PRN (09:45)
[2018-02-15] MEDS ORDERED: CloNIDine HCL 0.1 MG TABLET PO PRN (09:45)
[2018-02-15] MEDS: OXYBUTYNIN CHLORIDE 5 MG TABLET PO SCH ×2 (10:08→16:29)
[2018-02-15 10:34] LABS: AMPHET/METH SCREEN,URINE NEGATIVE (NEGATIVE); BARBITURATE SCREEN, URINE NEGATIVE (NEGATIVE); BENZODIAZEPINES SCREEN,URINE NEGATIVE (NEGATIVE); CANNABINOID SCREEN,URINE POSITIVE (NEGATIVE); COCAINE SCREEN,URINE NEGATIVE (NEGATIVE); METHADONE SCREEN, URINE NEGATIVE (NEGATIVE); OPIATE SCREEN,URINE NEGATIVE (NEGATIVE)
[2018-02-15 10:36] LABS: PHENCYCLIDINE SCREEN,URINE NEGATIVE (NEGATIVE)
[2018-02-15 16:30] VITALS: BP 123/79
[2018-02-15] MEDS: IBUPROFEN 600 MG TABLET PO PRN (16:30)
[2018-02-15 18:04] LABS: APPEARANCE,URINE CLEAR (CLEAR); BILIRUBIN,URINE NEGATIVE (NEGATIVE); GLUCOSE, URINE (UA) NEGATIVE (NEGATIVE); KETONES,URINE NEGATIVE (NEGATIVE); LEUKOCYTE ESTERASE ,URINE TRACE (NEGATIVE); NITRATE,URINE NEGATIVE (NEGATIVE); OCCULT BLOOD,URINE TRACE (NEGATIVE); PH,URINE 5.5 (5.0-8.0); PROTEIN,URINE NEGATIVE (NEGATIVE); UROBILINOGEN,URINE 0.2 mg/dL (<=1.0)
[2018-02-15 18:11] LABS: RBC,URINE 0-2 /HPF (0-2); WBC,URINE 0-2 /HPF (0-5)
[2018-02-15 18:12] LABS: BACTERIA,URINE None Seen /HPF (None Seen); SQUAMOUS EPITHELIAL CELL,UR Few /LPF (None Seen)
[2018-02-15 20:40] VITALS: BP 114/83
[2018-02-15] MEDS: QUEtiapine FUMARATE 300 MG TABLET PO SCH (20:41)
[2018-02-15] MEDS: PARoxetine HCL 20 MG TABLET PO SCH (20:41)
[2018-02-15] MEDS: PRAZOSIN HCL 1 MG CAPSULE PO SCH (20:41)
[2018-02-15] MEDS: DICYCLOMINE HCL 20 MG TABLET PO SCH (21:33)
[2018-02-16 01:25] VITALS: BP 109/60
[2018-02-16 08:07] VITALS: BP 108/70
[2018-02-16] MEDS: CHOLECALCIFEROL (VIT D3) 1,000 UNITS TABLET PO SCH (08:37)
[2018-02-16] MEDS: BusPIRone HCL 10 MG TABLET PO SCH ×2 (08:37→16:39)
[2018-02-16] MEDS: OMEPRAZOLE 20 MG CAPSULE PO SCH (08:37)
[2018-02-16] MEDS: DICYCLOMINE HCL 20 MG TABLET PO SCH ×4 (08:37→20:30)
[2018-02-16] MEDS: OXYBUTYNIN CHLORIDE 5 MG TABLET PO SCH ×2 (08:37→16:39)
[2018-02-16] MEDS: NICOTINE 14 MG/24 HOUR PATCH TD SCH (08:38)
[2018-02-16] MEDS: LORazepam 2 MG TABLET PO PRN (09:48)
[2018-02-16 16:03] VITALS: BP 117/74
[2018-02-16 20:17] VITALS: BP 114/83
[2018-02-16] MEDS: IBUPROFEN 600 MG TABLET PO PRN (20:20)
[2018-02-16] MEDS: QUEtiapine FUMARATE 300 MG TABLET PO SCH (20:30)
[2018-02-16] MEDS: PARoxetine HCL 20 MG TABLET PO SCH (20:30)
[2018-02-16] MEDS: PRAZOSIN HCL 1 MG CAPSULE PO SCH (20:30)
[2018-02-17 00:15] VITALS: BP 103/62
[2018-02-17] MEDS: ZOLPIDEM TARTRATE 10 MG TABLET PO PRN (00:18)
[2018-02-17 08:24] VITALS: BP 121/72
[2018-02-17] MEDS: CHOLECALCIFEROL (VIT D3) 1,000 UNITS TABLET PO SCH (08:33)
[2018-02-17] MEDS: OXYBUTYNIN CHLORIDE 5 MG TABLET PO SCH ×2 (08:33→16:00)
[2018-02-17] MEDS: DICYCLOMINE HCL 20 MG TABLET PO SCH ×4 (08:33→20:13)
[2018-02-17] MEDS: OMEPRAZOLE 20 MG CAPSULE PO SCH (08:33)
[2018-02-17] MEDS: BusPIRone HCL 10 MG TABLET PO SCH ×2 (08:33→16:00)
[2018-02-17] MEDS: NICOTINE 14 MG/24 HOUR PATCH TD SCH (08:34)
[2018-02-17] MEDS: LORazepam 2 MG TABLET PO PRN ×2 (10:05→16:56)
[2018-02-17 11:44] VITALS: BP 118/74
[2018-02-17] MEDS: IBUPROFEN 600 MG TABLET PO PRN (11:44)
[2018-02-17 16:00] VITALS: BP 120/74
[2018-02-17] MEDS: ACETAMINOPHEN 325 MG TABLET PO PRN (16:01)
[2018-02-17] MEDS: PARoxetine HCL 10 MG TABLET PO SCH (20:12)
[2018-02-17] MEDS: QUEtiapine FUMARATE 300 MG TABLET PO SCH (20:13)
[2018-02-17] MEDS: PRAZOSIN HCL 1 MG CAPSULE PO SCH (20:13)
[2018-02-18 06:22] VITALS: BP 125/60
[2018-02-18 08:31] VITALS: BP 110/60
[2018-02-18] MEDS: DICYCLOMINE HCL 20 MG TABLET PO SCH ×4 (08:50→20:32)
[2018-02-18] MEDS: OMEPRAZOLE 20 MG CAPSULE PO SCH (08:50)
[2018-02-18] MEDS: BusPIRone HCL 10 MG TABLET PO SCH ×2 (08:50→17:10)
[2018-02-18] MEDS: CHOLECALCIFEROL (VIT D3) 1,000 UNITS TABLET PO SCH (08:50)
[2018-02-18] MEDS: OXYBUTYNIN CHLORIDE 5 MG TABLET PO SCH ×2 (08:50→16:35)
[2018-02-18] MEDS: NICOTINE 14 MG/24 HOUR PATCH TD SCH (08:51)
[2018-02-18] MEDS: IBUPROFEN 600 MG TABLET PO PRN ×2 (08:54→16:02)
[2018-02-18] MEDS: LORazepam 2 MG TABLET PO PRN ×2 (08:54→16:02)
[2018-02-18 16:04] VITALS: BP 113/72
[2018-02-18 20:31] VITALS: BP 122/79
[2018-02-18] MEDS: PRAZOSIN HCL 1 MG CAPSULE PO SCH (20:32)
[2018-02-18] MEDS: PARoxetine HCL 10 MG TABLET PO SCH (20:32)
[2018-02-18] MEDS: QUEtiapine FUMARATE 300 MG TABLET PO SCH (20:32)
[2018-02-19 05:02] VITALS: BP 118/72
[2018-02-19 08:15] VITALS: BP 130/60
[2018-02-19] MEDS: BusPIRone HCL 10 MG TABLET PO SCH ×2 (08:44→17:26)
[2018-02-19] MEDS: OXYBUTYNIN CHLORIDE 5 MG TABLET PO SCH ×2 (08:44→16:39)
[2018-02-19] MEDS: DICYCLOMINE HCL 20 MG TABLET PO SCH ×4 (08:44→20:31)
[2018-02-19] MEDS: CHOLECALCIFEROL (VIT D3) 1,000 UNITS TABLET PO SCH (08:44)
[2018-02-19] MEDS: OMEPRAZOLE 20 MG CAPSULE PO SCH (08:47)
[2018-02-19] MEDS: NICOTINE 14 MG/24 HOUR PATCH TD SCH (08:47)
[2018-02-19] MEDS: IBUPROFEN 600 MG TABLET PO PRN (08:48)
[2018-02-19] MEDS: LORazepam 2 MG TABLET PO PRN ×2 (08:48→16:39)
[2018-02-19 16:09] VITALS: BP 110/73
[2018-02-19 20:30] VITALS: BP 111/83
[2018-02-19] MEDS: PRAZOSIN HCL 1 MG CAPSULE PO SCH (20:31)
[2018-02-19] MEDS: QUEtiapine FUMARATE 300 MG TABLET PO SCH (20:31)
[2018-02-19] MEDS: PARoxetine HCL 10 MG TABLET PO SCH (20:31)
[2018-02-19] MEDS: ZOLPIDEM TARTRATE 10 MG TABLET PO PRN (22:21)
[2018-02-20 05:55] VITALS: BP 120/80
[2018-02-20] MEDS: BusPIRone HCL 10 MG TABLET PO SCH ×3 (08:22→20:32)
[2018-02-20] MEDS: OMEPRAZOLE 20 MG CAPSULE PO SCH (08:22)
[2018-02-20] MEDS: CHOLECALCIFEROL (VIT D3) 1,000 UNITS TABLET PO SCH (08:22)
[2018-02-20] MEDS: DICYCLOMINE HCL 20 MG TABLET PO SCH ×4 (08:22→20:32)
[2018-02-20] MEDS: OXYBUTYNIN CHLORIDE 5 MG TABLET PO SCH ×2 (08:22→16:40)
[2018-02-20] MEDS: NICOTINE 14 MG/24 HOUR PATCH TD SCH (08:23)
[2018-02-20 09:03] VITALS: BP 120/73
[2018-02-20 12:42] VITALS: BP 116/86
[2018-02-20] MEDS: IBUPROFEN 600 MG TABLET PO PRN (12:42)
[2018-02-20] MEDS: LORazepam 2 MG TABLET PO PRN ×2 (12:42→18:08)
[2018-02-20 16:49] VITALS: BP 135/68
[2018-02-20] MEDS: ACETAMINOPHEN 325 MG TABLET PO PRN (18:08)
[2018-02-20] MEDS: PRAZOSIN HCL 1 MG CAPSULE PO SCH (20:32)
[2018-02-20] MEDS: QUEtiapine FUMARATE 300 MG TABLET PO SCH (20:32)
[2018-02-20 20:33] VITALS: BP 118/83
[2018-02-21 05:15] VITALS: BP 127/66
[2018-02-21 08:00] VITALS: BP 117/72
[2018-02-21] MEDS: DICYCLOMINE HCL 20 MG TABLET PO SCH ×4 (08:13→20:26)
[2018-02-21] MEDS: OMEPRAZOLE 20 MG CAPSULE PO SCH (08:13)
[2018-02-21] MEDS: NICOTINE 14 MG/24 HOUR PATCH TD SCH (08:13)
[2018-02-21] MEDS: CHOLECALCIFEROL (VIT D3) 1,000 UNITS TABLET PO SCH (08:13)
[2018-02-21] MEDS: PARoxetine HCL 20 MG TABLET PO SCH (08:13)
[2018-02-21] MEDS: BusPIRone HCL 10 MG TABLET PO SCH ×3 (08:13→20:26)
[2018-02-21] MEDS: OXYBUTYNIN CHLORIDE 5 MG TABLET PO SCH ×2 (08:13→16:26)
[2018-02-21 10:11] VITALS: BP 124/75
[2018-02-21] MEDS: LORazepam 2 MG TABLET PO PRN ×2 (10:11→18:00)
[2018-02-21] MEDS: IBUPROFEN 600 MG TABLET PO PRN (10:12)
[2018-02-21 16:08] VITALS: BP 117/82
[2018-02-21] MEDS: ACETAMINOPHEN 325 MG TABLET PO PRN (16:08)
[2018-02-21 20:25] VITALS: BP 127/82
[2018-02-21] MEDS: QUEtiapine FUMARATE 300 MG TABLET PO SCH (20:26)
[2018-02-21] MEDS: PRAZOSIN HCL 1 MG CAPSULE PO SCH (20:26)
[2018-02-22 06:07] VITALS: BP 105/68
[2018-02-22 08:20] VITALS: BP 118/70
[2018-02-22] MEDS: BusPIRone HCL 10 MG TABLET PO SCH ×3 (08:29→20:08)
[2018-02-22] MEDS: CHOLECALCIFEROL (VIT D3) 1,000 UNITS TABLET PO SCH (08:30)
[2018-02-22] MEDS: OXYBUTYNIN CHLORIDE 5 MG TABLET PO SCH ×2 (08:30→16:06)
[2018-02-22] MEDS: OMEPRAZOLE 20 MG CAPSULE PO SCH (08:30)
[2018-02-22] MEDS: PARoxetine HCL 20 MG TABLET PO SCH (08:31)
[2018-02-22] MEDS: NICOTINE 14 MG/24 HOUR PATCH TD SCH (08:31)
[2018-02-22] MEDS: DICYCLOMINE HCL 20 MG TABLET PO SCH ×4 (08:32→20:08)
[2018-02-22] MEDS: LORazepam 2 MG TABLET PO PRN ×2 (08:37→13:55)
[2018-02-22] MEDS: IBUPROFEN 600 MG TABLET PO PRN (09:47)
[2018-02-22 16:11] VITALS: BP 120/64
[2018-02-22 20:00] VITALS: BP 117/74
[2018-02-22] MEDS: QUEtiapine FUMARATE 300 MG TABLET PO SCH (20:07)
[2018-02-22] MEDS: PRAZOSIN HCL 1 MG CAPSULE PO SCH (20:08)
[2018-02-23 01:30] VITALS: BP 103/60
[2018-02-23] MEDS: OXYBUTYNIN CHLORIDE 5 MG TABLET PO SCH (08:06)
[2018-02-23] MEDS: CHOLECALCIFEROL (VIT D3) 1,000 UNITS TABLET PO SCH (08:06)
[2018-02-23] MEDS: OMEPRAZOLE 20 MG CAPSULE PO SCH (08:06)
[2018-02-23] MEDS: DICYCLOMINE HCL 20 MG TABLET PO SCH (08:06)
[2018-02-23] MEDS: NICOTINE 14 MG/24 HOUR PATCH TD SCH (08:06)
[2018-02-23] MEDS: PARoxetine HCL 20 MG TABLET PO SCH (08:06)
[2018-02-23] MEDS: BusPIRone HCL 10 MG TABLET PO SCH (08:06)
[2018-02-23 08:07] VITALS: BP 130/78
[2018-02-23] MEDS: IBUPROFEN 600 MG TABLET PO PRN (08:07)
[2018-02-23] MEDS: LORazepam 2 MG TABLET PO PRN (08:07)
[2018-02-23 08:18] VITALS: BP 130/78
[2018-02-23] MEDS ORDERED: BUSP10TA23 PO ×2 (09:14→09:41)
[2018-02-23] MEDS ORDERED: PARO-37 PO (09:14)
[2018-02-23] MEDS ORDERED: PRAZ1 PO ×2 (09:14→09:41)
[2018-02-23] MEDS ORDERED: QUET300T18 PO (09:14)
[2018-02-23] MEDS ORDERED: OMEP20 PO (09:41)
[2018-02-23] MEDS ORDERED: OXYB5 PO (09:41)
[2018-02-23] MEDS ORDERED: VITAD1000 PO (09:41)
[2018-02-23] MEDS ORDERED: PARO20TA24 PO (09:41)
== END 2018-02-23 11:03 | disposition home or self-care (01) | DRG 885 ==
LOC: B2X 14:03
DX: F25.1 Schizoaffective disorder, depressive type (principal); R45.851 Suicidal ideations; E78.5 Hyperlipidemia, unspecified; F12.10 Cannabis abuse, uncomplicated; F17.200 Nicotine dependence, unspecified, uncomplicated; F43.12 Post-traumatic stress disorder, chronic; G47.00 Insomnia, unspecified; K21.9 Gastro-esophageal reflux disease without esophagitis; K58.9 Irritable bowel syndrome, unspecified; R32 Unspecified urinary incontinence; Z79.899 Other long term (current) drug therapy; Z88.2 Allergy status to sulfonamides; Z88.1 Allergy status to other antibiotic agents; Z91.5 Personal history of self-harm; Z71.6 Tobacco abuse counseling
CPT/HCPCS: 80307; 83036; 84439; 84443

== ENCOUNTER 2018-04-10 11:17 | Emergency (ER) | payer MEDICARE, SELFPAY ==
[~2018-04-10] VITALS: Ht 162.6 cm; Wt 75.0 kg
[~2018-04-10 11:17] MED LIST changes: -ATOR20TA86 PO; -DSS100 PO; +OXYB5 PO; +PARO-37 PO; +PARO20TA24 PO; +PRAZ1 PO; -PRAZ2 PO; +QUET300T18 PO; -VENL-67 PO; +VITAD1000 PO
[2018-04-10] MEDS ORDERED: ATOR20TA86 PO (12:26)
[2018-04-10 13:07] LABS: BASOPHILS % (AUTO) 0.7 % (0.0-2.0); EOSINOPHILS % (AUTO) 1.9 % (1.0-6.0); HEMOGLOBIN 13.4 g/dL (12.0-16.0); LYMPHOCYTES # (AUTO) 1.3 K/uL (1.0-4.8); LYMPHOCYTES % (AUTO) 21.1 % (22.0-44.0); MEAN CORPUSCULAR HEMOGLOBIN 31.1 pg (26.0-34.0); MEAN CORPUSCULAR HGB CONC 34.4 G/dL (31.0-37.0); MEAN CORPUSCULAR VOLUME 91 fL (80-100); MONOCYTES # (AUTO) 0.6 K/uL (0.1-1.0); MONOCYTES % (AUTO) 9.7 % (2.0-9.0); NEUTROPHILS # (AUTO) 4.3 K/uL (1.8-7.7); NEUTROPHILS % (AUTO) 66.6 % (40.0-70.0); PLATELET COUNT (AUTO) 294 K/uL (150-450); RED BLOOD CELL COUNT(AUTO) 4.31 MIL/uL (4.00-5.20); RED CELL DISTRIBUTION WIDTH 13.9 % (11.5-14.5)
[2018-04-10 13:19] LABS: ANION GAP 7 mmol/L (8-16); CALCIUM, TOTAL 9.4 mg/dL (8.8-10.5); CARBON DIOXIDE 26 mmol/L (22-29); CHLORIDE 105 mmol/L (98-107); CREATININE 0.84 mg/dL (0.60-1.30); GLOMERULAR FILTR. RATE CALC > 60 mL/min (>60); GLUCOSE,RANDOM 99 mg/dL (70-110); POTASSIUM 3.7 mmol/L (3.5-5.1); SODIUM SERUM 138 mmol/L (136-145); UREA NITROGEN, BLOOD 7 mg/dL (7-18)
[2018-04-10 13:33] LABS: ALANINE AMINOTRANSFERASE 17 U/L (12-78); ALKALINE PHOSPHATASE 135 U/L (46-116); ASPARTATE AMINOTRANSFERASE 19 U/L (15-37); BILIRUBIN,TOTAL 0.3 mg/dL (0.1-1.0); LIPASE 208 U/L (73-393); TOTAL PROTEIN, SERUM 7.6 g/dL (6.4-8.2)
[2018-04-10 14:26] LABS: APPEARANCE,URINE CLEAR (CLEAR); BILIRUBIN,URINE NEGATIVE (NEGATIVE); GLUCOSE, URINE (UA) NEGATIVE (NEGATIVE); KETONES,URINE TRACE mg/dL (NEGATIVE); LEUKOCYTE ESTERASE ,URINE NEGATIVE (NEGATIVE); NITRATE,URINE NEGATIVE (NEGATIVE); OCCULT BLOOD,URINE SMALL (NEGATIVE); PH,URINE 5.5 (5.0-8.0); PROTEIN,URINE NEGATIVE (NEGATIVE); UROBILINOGEN,URINE 0.2 mg/dL (<=1.0)
[2018-04-10 14:27] LABS: BACTERIA,URINE None Seen /HPF (None Seen); SQUAMOUS EPITHELIAL CELL,UR Rare /LPF (None Seen)
[2018-04-10 15:08] VITALS: BP 142/103
== END 2018-04-10 14:30 | disposition left against medical advice (07) ==
LOC: EMS 11:37
DX: R10.13 Epigastric pain (principal); F41.9 Anxiety disorder, unspecified; R11.2 Nausea with vomiting, unspecified; F32.9 Major depressive disorder, single episode, unspecified; K21.9 Gastro-esophageal reflux disease without esophagitis; F17.210 Nicotine dependence, cigarettes, uncomplicated; F12.90 Cannabis use, unspecified, uncomplicated; Z59.0 Homelessness; Z88.2 Allergy status to sulfonamides; Z88.0 Allergy status to penicillin; Z88.1 Allergy status to other antibiotic agents
CPT/HCPCS: 93005; 99285

== ENCOUNTER 2018-04-13 15:57 | Emergency (ER) | payer MEDICARE ==
[~2018-04-13] VITALS: Ht 167.6 cm; Wt 77.3 kg
[~2018-04-13 15:57] MED LIST changes: +ATOR20TA86 PO; -OXYB5 PO; -PARO20TA24 PO; -PRAZ1 PO; -QUET300T2 PO; -VITAD1000 PO
[2018-04-13] MEDS ORDERED: PRAZ1 PO (16:07)
[2018-04-13] MEDS ORDERED: LORazepam 2 MG/ML VIAL IVP ONE ×2 (16:15→17:30)
[2018-04-13 16:22] VITALS: BP 110/82
[2018-04-13 16:33] LABS: BASOPHILS % (AUTO) 0.3 % (0.0-2.0); EOSINOPHILS % (AUTO) 1.5 % (1.0-6.0); HEMATOCRIT 37.2 % (36-46); HEMOGLOBIN 12.9 g/dL (12.0-16.0); LYMPHOCYTES # (AUTO) 1.5 K/uL (1.0-4.8); LYMPHOCYTES % (AUTO) 26.1 % (22.0-44.0); MEAN CORPUSCULAR HEMOGLOBIN 31.1 pg (26.0-34.0); MEAN CORPUSCULAR HGB CONC 34.7 G/dL (31.0-37.0); MEAN CORPUSCULAR VOLUME 90 fL (80-100); MONOCYTES # (AUTO) 0.6 K/uL (0.1-1.0); MONOCYTES % (AUTO) 10.1 % (2.0-9.0); NEUTROPHILS # (AUTO) 3.5 K/uL (1.8-7.7); PLATELET COUNT (AUTO) 269 K/uL (150-450); RED BLOOD CELL COUNT(AUTO) 4.14 MIL/uL (4.00-5.20); RED CELL DISTRIBUTION WIDTH 13.8 % (11.5-14.5)
[2018-04-13 16:41] LABS: ANION GAP 13 mmol/L (8-16); CALCIUM, TOTAL 9.4 mg/dL (8.8-10.5); CARBON DIOXIDE 23 mmol/L (22-29); CHLORIDE 104 mmol/L (98-107); CREATININE 0.91 mg/dL (0.60-1.30); GLOMERULAR FILTR. RATE CALC > 60 mL/min (>60); GLUCOSE,RANDOM 156 mg/dL (70-110); POTASSIUM 3.5 mmol/L (3.5-5.1); SODIUM SERUM 140 mmol/L (136-145); UREA NITROGEN, BLOOD 7 mg/dL (7-18)
[2018-04-13 16:47] LABS: ALANINE AMINOTRANSFERASE 19 U/L (12-78); ALBUMIN 3.8 g/dL (3.4-5.0); ALKALINE PHOSPHATASE 137 U/L (46-116); ASPARTATE AMINOTRANSFERASE 18 U/L (15-37); BILIRUBIN,TOTAL 0.3 mg/dL (0.1-1.0); TOTAL PROTEIN, SERUM 7.4 g/dL (6.4-8.2)
== END 2018-04-13 18:35 | disposition home or self-care (01) ==
LOC: EMS 15:58
DX: R00.2 Palpitations (principal); F41.9 Anxiety disorder, unspecified; R25.1 Tremor, unspecified; F32.9 Major depressive disorder, single episode, unspecified; K21.9 Gastro-esophageal reflux disease without esophagitis; F17.210 Nicotine dependence, cigarettes, uncomplicated; F12.90 Cannabis use, unspecified, uncomplicated; Z88.2 Allergy status to sulfonamides; Z88.0 Allergy status to penicillin; Z88.1 Allergy status to other antibiotic agents; Z59.0 Homelessness
CPT/HCPCS: 36415; 80053; 85025; 93005; 96374; 96376; 99285; G0480; J2060